=== PATIENT | female | born 1975 | race Two or more races ===

== ENCOUNTER 2020-12-10 13:58 | Inpatient (IN) | payer OTHER ==
[~2020-12-10] VITALS: Ht 157.5 cm; Wt 59.9 kg
[2020-12-10] MEDS ORDERED: CLINDAMYCIN 900MG IV 50 ML IV ONE (14:30)
[2020-12-10 14:45] LABS: Basophils # (auto) 0 10 ^3/uL (0-0.2); Monocytes # (auto) 0.8 10 ^3/uL (0-1.3)
[2020-12-10 14:46] LABS: Basophils % (auto) 0.3 % (0.0-2.0); Eosinophils # (auto) 0 10 ^3/uL (0-0.8); Eosinophils % (auto) 0.2 % (0.0-7.0); Hematocrit 36.8 % (36.0-46.0); Lymphocytes # (auto) 0.8 10 ^3/uL (0.4-5.4); Lymphocytes % (auto) 4.3 % (10.0-50.0); Mean Corpuscular Hemoglobin 25.4 pg (28.0-32.0); Mean Corpuscular Hgb Conc. 32.6 g/dL (32.0-36.0); Mean Corpuscular Volume 78.1 fL (80.0-100.0); Monocytes % (auto) 4.4 % (0.0-12.0); Neutrophils # (auto) 16.3 10 ^3/uL (1.6-8.6); Neutrophils % (auto) 90.8 % (37.0-80.0); Red Blood Cells 4.72 10^6/uL (4.0-5.20); Red Cell Distribution Width 15.2 % (11.8-14.3); White Blood Cell 17.9 10^3/uL (4.4-10.8)
[2020-12-10 15:06] LABS: Albumin 2.5 g/dL (3.4-5.0); BUN/Creatinine Ratio 20.5; Calcium 8.7 mg/dL (8.5-10.1); Potassium 3.4 mmol/L (3.5-5.1)
[2020-12-10 15:09] LABS: Bilirubin, Total 0.4 mg/dL (0.2-1.0); Total Protein 7.4 g/dL (6.4-8.2)
[2020-12-10] MEDS ORDERED: POTASSIUM CHL 20 Meq TABLET PO ONE (15:15)
[2020-12-10] MEDS ORDERED: cefTRIAXone 1GM/50ML D5W 50 ML IV ONE (15:30)
[2020-12-10] MEDS ORDERED: SODIUM CHLORIDE 0.9% 1,000 ML IV ONE (15:30)
[2020-12-10] MEDS ORDERED: MORPHINE SULFATE INJECTION 2 MG/ML SYRG IV ONE (15:30)
[2020-12-10] MEDS ORDERED: ONDANSETRON HCL 4 MG/2 ML VIAL IV ONE (15:30)
[2020-12-10] MEDS ORDERED: MORPHINE SULFATE INJECTION 2 MG/ML SYRG IV PRN (16:00)
[2020-12-10] MEDS ORDERED: NITROGLYCERIN 0.4 MG SL TAB SL PRN (16:00)
[2020-12-10] MEDS ORDERED: PANTOPRAZOLE 40 MG/10 ML VIAL INJ IV SCH (16:12)
[2020-12-10] MEDS ORDERED: levoFLOXacin 500MG 100 ML IV SCH ×2 (16:13→20:00)
[2020-12-10] MEDS: SODIUM CHLORIDE 0.9% 1,000 ML IV SCH (17:13)
[2020-12-10] MEDS ORDERED: HYDROmorphone HCL 2 MG/ML VL IV PRN (18:00)
[2020-12-10 22:00] VITALS: BP 120/70
[2020-12-10] MEDS: CLINDAMYCIN 600MG IV 50 ML IV SCH (22:26)
[2020-12-10] MEDS: PANTOPRAZOLE 40 MG/10 ML VIAL INJ IV SCH (22:27)
[2020-12-10] MEDS: ACETAMINOPHEN 500 MG TAB PO PRN (22:45)
[2020-12-10 23:07] VITALS: BP 120/70
[2020-12-10] MEDS ORDERED: METH2.5T PO (23:50)
[2020-12-10] MEDS ORDERED: METF-370 PO (23:50)
[2020-12-10] MEDS ORDERED: ASPI-543 PO (23:50)
[2020-12-10] MEDS ORDERED: OMEP20TA PO (23:50)
[2020-12-10] MEDS ORDERED: FOLI1TAB6 PO (23:50)
[2020-12-10] MEDS ORDERED: ATO40T PO (23:50)
[2020-12-11] MEDS: ONDANSETRON HCL 4 MG/2 ML VIAL IV PRN ×5 (00:28→19:55)
[2020-12-11 05:00] VITALS: BP 116/73
[2020-12-11] MEDS: HYDROmorphone HCL 2 MG/ML VL IV PRN ×4 (05:22→19:55)
[2020-12-11 05:26] LABS: Basophils # (auto) 0 10 ^3/uL (0-0.2); Basophils % (auto) 0.1 % (0.0-2.0); Eosinophils # (auto) 0 10 ^3/uL (0-0.8); Hematocrit 35.2 % (36.0-46.0); Hemoglobin 11.6 g/dL (12.2-16.2); Mean Corpuscular Volume 79.2 fL (80.0-100.0); Monocytes # (auto) 0.8 10 ^3/uL (0-1.3); Red Cell Distribution Width 15.3 % (11.8-14.3)
[2020-12-11] MEDS: CLINDAMYCIN 600MG IV 50 ML IV SCH (05:27)
[2020-12-11] MEDS: SODIUM CHLORIDE 0.9% 1,000 ML IV SCH ×2 (05:30→20:36)
[2020-12-11 05:43] LABS: Lymphocytes # (auto) 0.8 10 ^3/uL (0.4-5.4); Lymphocytes % (auto) 5.2 % (10.0-50.0); Mean Corpuscular Hgb Conc. 32.9 g/dL (32.0-36.0); Monocytes % (auto) 5.6 % (0.0-12.0); Neutrophils # (auto) 13.4 10 ^3/uL (1.6-8.6); Neutrophils % (auto) 89.1 % (37.0-80.0); Nucleated Red Blood Cells % 0.1 %; Red Blood Cells 4.45 10^6/uL (4.0-5.20)
[2020-12-11 05:48] LABS: Potassium 3.6 mmol/L (3.5-5.1)
[2020-12-11 06:06] LABS: Albumin 2.2 g/dL (3.4-5.0); BUN/Creatinine Ratio 16.4; Bilirubin, Total 0.3 mg/dL (0.2-1.0); Calcium 8.2 mg/dL (8.5-10.1); Total Protein 6.8 g/dL (6.4-8.2)
[2020-12-11 08:30] VITALS: BP 136/87
[2020-12-11] MEDS ORDERED: VANCOMYCIN PER PHARMACY 0 MG IV SCH (08:45)
[2020-12-11] MEDS: PANTOPRAZOLE 40 MG/10 ML VIAL INJ IV SCH (10:40)
[2020-12-11] MEDS: VANCOMYCIN 1GM/250ML 250 ML IV SCH ×2 (10:40→22:10)
[2020-12-11] MEDS: ACETAMINOPHEN 500 MG TAB PO PRN ×2 (11:05→22:45)
[2020-12-11] MEDS ORDERED: DEXTROSE (50%) 50ML SYRG IV PRN (12:15)
[2020-12-11] MEDS: MEROPENEM 1GM IVPB 100 ML IV SCH ×2 (12:42→20:00)
[2020-12-11 13:00] VITALS: BP 108/65
[2020-12-11 16:25] VITALS: BP 102/61
[2020-12-11] MEDS: InsuLIN REG 1unit/0.01ml Soln (100units/ml) SC SCH ×2 (17:08→22:00)
[2020-12-11] MEDS: ACCU-CHEK COMFORT CURVE STRIP VI SCH ×2 (17:08→22:00)
[2020-12-11] MEDS: HYDROcodone-ACET 5/325MG TAB PO PRN (21:01)
[2020-12-11 22:00] VITALS: BP 115/54
[2020-12-12] MEDS: HYDROmorphone HCL 2 MG/ML VL IV PRN ×7 (01:41→21:42)
[2020-12-12] MEDS: ONDANSETRON HCL 4 MG/2 ML VIAL IV PRN ×4 (01:42→19:18)
[2020-12-12] MEDS: MEROPENEM 1GM IVPB 100 ML IV SCH ×3 (04:30→19:56)
[2020-12-12] MEDS: HYDROcodone-ACET 5/325MG TAB PO PRN (04:52)
[2020-12-12 05:00] VITALS: BP 113/71
[2020-12-12] MEDS: ACCU-CHEK COMFORT CURVE STRIP VI SCH ×4 (06:05→21:45)
[2020-12-12] MEDS: InsuLIN REG 1unit/0.01ml Soln (100units/ml) SC SCH ×4 (06:08→21:45)
[2020-12-12 06:23] LABS: Hematocrit 37.2 % (36.0-46.0); Hemoglobin 12.1 g/dL (12.2-16.2); Mean Corpuscular Hemoglobin 25.7 pg (28.0-32.0); Mean Corpuscular Hgb Conc. 32.6 g/dL (32.0-36.0); Mean Corpuscular Volume 78.8 fL (80.0-100.0); Red Blood Cells 4.73 10^6/uL (4.0-5.20); Red Cell Distribution Width 15.8 % (11.8-14.3); White Blood Cell 16.3 10^3/uL (4.4-10.8)
[2020-12-12 06:28] LABS: Basophils % (manual) 0 (0.0-2.0); Blast Cells 0; Eosinophils % (manual) 0 (0-7); Myelocytes % 0; Promyelocytes % 0; Reactive Lymphocytes 0
[2020-12-12 06:29] LABS: Albumin 2.1 g/dL (3.4-5.0); Anion Gap 10 (5-15); Blood Urea Nitrogen 11 mg/dL (7-18); Calcium 8.6 mg/dL (8.5-10.1); Carbon Dioxide 25 mmol/L (21-32); Chloride 103 mmol/L (98-107); Glucose 121 mg/dL (74-106); Potassium 3.7 mmol/L (3.5-5.1); Sodium 138 mmol/L (136-145)
[2020-12-12 06:31] LABS: Alanine Aminotransferase 31 U/L (13-56); BUN/Creatinine Ratio 14.3; GFR African American 103 mL/min; GFR Non-African American 85 mL/min
[2020-12-12 06:35] LABS: Alkaline Phosphatase 102 U/L (45-117); Aspartate Aminotransferase 28 U/L (15-37); Bilirubin, Total 0.5 mg/dL (0.2-1.0); Total Protein 7.1 g/dL (6.4-8.2)
[2020-12-12 08:53] LABS: Band Neutrophils % (manual) 28; Lymphocytes % (manual) 14 (10.0-50.0); Metamyelocytes % 1; Monocytes % (manual) 3 (0-12)
[2020-12-12 09:00] VITALS: BP 101/59
[2020-12-12] MEDS: PANTOPRAZOLE 40 MG/10 ML VIAL INJ IV SCH (10:01)
[2020-12-12] MEDS: CLINDAMYCIN 900MG IV 50 ML IV SCH ×2 (10:02→17:49)
[2020-12-12] MEDS: SODIUM CHLORIDE 0.9% 1,000 ML IV SCH (12:11)
[2020-12-12 13:00] VITALS: BP 118/66
[2020-12-12] MEDS: IBUPROFEN 100MG/5ML ORAL SUSP 100 MG/5 ML UD PO SCH ×2 (14:00→21:45)
[2020-12-12] MEDS ORDERED: GADOTERATE MEG 10 MMOL/20ml INJ (0.5MMOL/ml) IV ONE (14:49)
[2020-12-12] MEDS ORDERED: ALBUTEROL SULF 2.5 MG/0.5ML(0.5%) NEB SOLN NEB PRN (16:00)
[2020-12-12 17:00] VITALS: BP 110/63
[2020-12-12] MEDS: ALBUTEROL SULF 2.5 MG/0.5ML(0.5%) NEB SOLN NEB SCH (18:18)
[2020-12-12] MEDS: IPRATROPIUM BROM 0.5 MG/2.5ML INH SOL NEB SCH (18:19)
[2020-12-12 21:42] VITALS: BP 114/56
[2020-12-13] VITALS (7 sets, daily range): BP systolic 90–106; BP diastolic 46–63
[2020-12-13] MEDS: CLINDAMYCIN 900MG IV 50 ML IV SCH ×5 (00:10→18:35)
[2020-12-13] MEDS: ALBUTEROL SULF 2.5 MG/0.5ML(0.5%) NEB SOLN NEB SCH ×4 (01:13→19:20)
[2020-12-13] MEDS: IPRATROPIUM BROM 0.5 MG/2.5ML INH SOL NEB SCH ×4 (01:13→19:20)
[2020-12-13] MEDS: HYDROmorphone HCL 2 MG/ML VL IV PRN ×7 (01:17→22:16)
[2020-12-13] MEDS: SODIUM CHLORIDE 0.9% 1,000 ML IV SCH ×2 (02:37→16:01)
[2020-12-13] MEDS: MEROPENEM 1GM IVPB 100 ML IV SCH ×3 (03:53→20:08)
[2020-12-13 05:09] LABS: Basophils # (auto) 0 10 ^3/uL (0-0.2); Basophils % (auto) 0.2 % (0.0-2.0); Eosinophils # (auto) 0 10 ^3/uL (0-0.8); Mean Corpuscular Hemoglobin 25.2 pg (28.0-32.0); Monocytes # (auto) 2.1 10 ^3/uL (0-1.3); White Blood Cell 17.5 10^3/uL (4.4-10.8)
[2020-12-13 05:12] LABS: Eosinophils % (auto) 0.1 % (0.0-7.0); Hematocrit 35.3 % (36.0-46.0); Hemoglobin 11.2 g/dL (12.2-16.2); Lymphocytes # (auto) 1.2 10 ^3/uL (0.4-5.4); Lymphocytes % (auto) 7.1 % (10.0-50.0); Mean Corpuscular Hgb Conc. 31.6 g/dL (32.0-36.0); Mean Corpuscular Volume 79.7 fL (80.0-100.0); Monocytes % (auto) 11.9 % (0.0-12.0); Neutrophils # (auto) 14.2 10 ^3/uL (1.6-8.6); Neutrophils % (auto) 80.7 % (37.0-80.0); Nucleated Red Blood Cells % 0.1 %; Red Blood Cells 4.43 10^6/uL (4.0-5.20); Red Cell Distribution Width 14.9 % (11.8-14.3)
[2020-12-13 05:51] LABS: Chloride 106 mmol/L (98-107); Potassium 3.2 mmol/L (3.5-5.1); Sodium 141 mmol/L (136-145)
[2020-12-13 05:56] LABS: Albumin 1.9 g/dL (3.4-5.0); Anion Gap 13 (5-15); Blood Urea Nitrogen 20 mg/dL (7-18); Calcium 8.5 mg/dL (8.5-10.1); Carbon Dioxide 22 mmol/L (21-32); GFR African American 117 mL/min; GFR Non-African American 97 mL/min; Glucose 120 mg/dL (74-106)
[2020-12-13 06:00] LABS: Alanine Aminotransferase 40 U/L (13-56); Alkaline Phosphatase 91 U/L (45-117); Aspartate Aminotransferase 38 U/L (15-37); Bilirubin, Total 0.5 mg/dL (0.2-1.0); Total Protein 6.9 g/dL (6.4-8.2)
[2020-12-13] MEDS: IBUPROFEN 100MG/5ML ORAL SUSP 100 MG/5 ML UD PO SCH ×3 (06:00→22:00)
[2020-12-13] MEDS: InsuLIN REG 1unit/0.01ml Soln (100units/ml) SC SCH ×4 (06:32→22:00)
[2020-12-13] MEDS: ACCU-CHEK COMFORT CURVE STRIP VI SCH ×4 (06:32→22:15)
[2020-12-13] MEDS: PANTOPRAZOLE 40 MG/10 ML VIAL INJ IV SCH (09:59)
[2020-12-13] MEDS: ONDANSETRON HCL 4 MG/2 ML VIAL IV PRN (11:46)
[2020-12-13] MEDS ORDERED: POTASSIUM CHL 20MEQ/100ML 100 ML IV ONE (21:15)
[2020-12-14] MEDS: ALBUTEROL SULF 2.5 MG/0.5ML(0.5%) NEB SOLN NEB SCH ×3 (00:21→11:03)
[2020-12-14] MEDS: IPRATROPIUM BROM 0.5 MG/2.5ML INH SOL NEB SCH ×3 (00:21→11:03)
[2020-12-14] MEDS: CLINDAMYCIN 900MG IV 50 ML IV SCH (00:29)
[2020-12-14] MEDS: HYDROmorphone HCL 2 MG/ML VL IV PRN ×5 (00:37→11:55)
[2020-12-14] MEDS: MEROPENEM 1GM IVPB 100 ML IV SCH ×2 (04:34→11:55)
[2020-12-14 04:52] VITALS: BP 89/50
[2020-12-14] MEDS: IBUPROFEN 100MG/5ML ORAL SUSP 100 MG/5 ML UD PO SCH (05:35)
[2020-12-14] MEDS: SODIUM CHLORIDE 0.9% 1,000 ML IV SCH (05:48)
[2020-12-14] MEDS: ACCU-CHEK COMFORT CURVE STRIP VI SCH ×2 (06:24→11:44)
[2020-12-14] MEDS: InsuLIN REG 1unit/0.01ml Soln (100units/ml) SC SCH ×2 (06:24→11:30)
[2020-12-14 06:48] LABS: Basophils # (auto) 0 10 ^3/uL (0-0.2); Eosinophils # (auto) 0.2 10 ^3/uL (0-0.8); Eosinophils % (auto) 0.9 % (0.0-7.0); Lymphocytes # (auto) 1.4 10 ^3/uL (0.4-5.4); Lymphocytes % (auto) 7.7 % (10.0-50.0); Mean Corpuscular Volume 78.4 fL (80.0-100.0); Red Cell Distribution Width 15.4 % (11.8-14.3)
[2020-12-14 06:50] LABS: Basophils % (auto) 0.2 % (0.0-2.0); Hematocrit 31.8 % (36.0-46.0); Hemoglobin 10.4 g/dL (12.2-16.2); Mean Corpuscular Hemoglobin 25.7 pg (28.0-32.0); Mean Corpuscular Hgb Conc. 32.7 g/dL (32.0-36.0); Monocytes # (auto) 1.9 10 ^3/uL (0-1.3); Monocytes % (auto) 10.5 % (0.0-12.0); Neutrophils # (auto) 14.7 10 ^3/uL (1.6-8.6); Neutrophils % (auto) 80.7 % (37.0-80.0); Red Blood Cells 4.06 10^6/uL (4.0-5.20); White Blood Cell 18.2 10^3/uL (4.4-10.8)
[2020-12-14 07:07] LABS: Potassium 3.4 mmol/L (3.5-5.1)
[2020-12-14 07:14] LABS: Albumin 1.9 g/dL (3.4-5.0); BUN/Creatinine Ratio 31.8; Bilirubin, Total 0.8 mg/dL (0.2-1.0); Calcium 8.6 mg/dL (8.5-10.1); Total Protein 6.5 g/dL (6.4-8.2)
[2020-12-14] MEDS ORDERED: CLINDAMYCIN 900MG IV 50 ML IV SCH (07:30)
[2020-12-14 08:00] VITALS: BP 125/60
[2020-12-14 09:00] VITALS: BP 125/60
[2020-12-14] MEDS: PANTOPRAZOLE 40 MG/10 ML VIAL INJ IV SCH (10:19)
== END 2020-12-14 13:25 | disposition short-term general hospital (02) | DRG 871 ==
LOC: ER 13:58 → TELE 15:51 → EEVIPCON 15:51 → CENTRAL 21:06 → TELE-CENTR 12-11 23:37
PROVIDERS: ADMIT Specialist; ATTEND Specialist
DX: A41.9 Sepsis, unspecified organism (principal); J96.90 Respiratory failure, unspecified, unspecified whether with hypoxia or hypercapnia; L03.221 Cellulitis of neck; L02.11 Cutaneous abscess of neck; L03.211 Cellulitis of face; K11.21 Acute sialoadenitis; E11.9 Type 2 diabetes mellitus without complications; Z20.822 Contact with and (suspected) exposure to COVID-19; K04.7 Periapical abscess without sinus; M60.9 Myositis, unspecified; Z88.0 Allergy status to penicillin; Z86.19 Personal history of other infectious and parasitic diseases; Z79.84 Long term (current) use of oral hypoglycemic drugs
CPT/HCPCS: 36415; 36600; 70450; 70486; 70490; 71045; 72147; 73706; 80053; 82805; 82962; 83605; 84484; 85007; 85025; 85027; 87040; 87426; 94640; 96361; 96365; 96367; 96375; C9113; G0378; J0696; J1815; J2185; J2405; J3480; J3490